=== PATIENT | male | born 1995 | race Caucasian/White ===

== ENCOUNTER 2021-04-07 02:34 | Emergency (ER) | payer BC ==
[2021-04-07 03:02] VITALS: BP 131/83; PULSE 127
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
[2021-04-07 03:21] LABS: AMPHETAMINES,URINE NEGATIVE (NEGATIVE); BARBITURATES,URINE NEGATIVE (NEGATIVE); BENZODIAZEPINE,URINE NEGATIVE (NEGATIVE); MDMA (ECSTASY), URINE NEGATIVE (NEGATIVE); METHADONE,URINE NEGATIVE (NEGATIVE); METHAMPHETAMINES,URINE NEGATIVE (NEGATIVE); OPIATES,URINE NEGATIVE (NEGATIVE); OXYCODONE,URINE NEGATIVE (NEGATIVE); PHENCYCLIDINE,URINE NEGATIVE (NEGATIVE); TCA,URINE NEGATIVE (NEGATIVE)
[2021-04-07 03:23] LABS: CHLORIDE,CL 98 mEq/L (98-106); SODIUM,NA 138 mEq/L (136-145)
[2021-04-07 03:24] LABS: PTT,PARTIAL THROMBOPLSTIN TIME 25.7 SEC (23.2-32.3)
[2021-04-07] MEDS ORDERED: Lidocaine 1% with EPINEPHrine 1:100,000 20 ML MDV INJECT ONE (03:37)
[2021-04-07] MEDS ORDERED: Take Home: traMADol 50 MG, 4 Tab Pack PO ONE (04:38)
[2021-04-07] MEDS ORDERED: traMADol 50 MG Tab PO ONE (04:38)
== END 2021-04-07 04:49 | disposition home or self-care (01) ==
LOC: CC.ED 02:34
DX: S06.9X9A Unspecified intracranial injury with loss of consciousness of unspecified duration, initial encounter (principal); S01.81XA Laceration without foreign body of other part of head, initial encounter; Z88.2 Allergy status to sulfonamides; W18.09XA Striking against other object with subsequent fall, initial encounter
CPT/HCPCS: 12001; 36415; 70450; 72125; 80053; 80305-QW; 80307; 85025; 85610; 85730; 99284-25; A9270-GY

== ENCOUNTER 2022-06-29 06:15 | Emergency (ER) | payer BC ==
[2022-06-29 06:22] VITALS: BP 152/82; PULSE 115
[2022-06-29] MEDS ORDERED: Acetaminophen 500 MG Tab PO ONE (06:41)
[2022-06-29] MEDS ORDERED: Ondansetron 4 MG Tab.DIS PO ONE (06:41)
[2022-06-29] MEDS ORDERED: Sodium Chloride 0.9% 1,000 ML IV ONE (06:56)
== END 2022-06-29 08:30 | disposition home or self-care (01) ==
LOC: CC.ED 06:15
DX: J01.10 Acute frontal sinusitis, unspecified (principal); J20.9 Acute bronchitis, unspecified; Z88.2 Allergy status to sulfonamides; Z20.822 Contact with and (suspected) exposure to COVID-19
CPT/HCPCS: 36415; 71046; 80053; 85025; 86140; 86308; 87635; 87804; 96360; 99284; 99285; A9270; J7030; U0002

== ENCOUNTER 2023-10-01 02:42 | Emergency (ER) | payer BC ==
[2023-10-01] MEDS: Acetaminophen 325 MG Tab PO ONE (03:10)
[2023-10-01 04:46] VITALS: BP 134/86; PULSE 108
== END 2023-10-01 04:00 | disposition home or self-care (01) ==
LOC: CC.ED 02:42
DX: S01.91XA Laceration without foreign body of unspecified part of head, initial encounter (principal); S09.90XA Unspecified injury of head, initial encounter; F10.129 Alcohol abuse with intoxication, unspecified; Z88.2 Allergy status to sulfonamides; Y04.2XXA Assault by strike against or bumped into by another person, initial encounter
CPT/HCPCS: 12001; 70450; 99283; 99284